=== PATIENT | male | born 1965 | race Caucasian/White ===

== ENCOUNTER 2024-10-25 23:24 | Inpatient (IN) | payer MEDICARE, MEDICAID, SELFPAY ==
--- NOTE | ~2024-10-25 | CT_ITS ---
CLINICAL HISTORY: Epigastric Pain; Hx Pancreatitis CT abdomen and pelvis with contrast Comparison: None Findings: No consolidation or effusion. The gallbladder and solid organs are within normal limits. No hydronephrosis or hydroureter. No bowel obstruction, pneumoperitoneum, or pneumatosis. A right hip prosthesis is in place, producing artifact which mildly limits evaluation of the pelvic structures. No focal bladder wall thickening identified. Unremarkable prostate gland. Normal appendix. No acute fracture visualized. IMPRESSION: 1. No acute inflammatory process identified within the abdomen or pelvis. No CT evidence for acute pancreatitis. This document has been electronically signed by: Manuel Morejon MD on 10/26/2024 02:51:55
--- NOTE | 2024-10-25 23:31 | ECG_ITS ---
Test Reason : TACHY Blood Pressure : */* mmHG Vent. Rate : 84 BPM Atrial Rate : 84 BPM P-R Int : 144 ms QRS Dur : 86 ms QT Int : 360 ms P-R-T Axes : 23 3 29 degrees QTcB Int : 425 ms Normal sinus rhythm Normal ECG When compared with ECG of 09-Oct-2016 10:11, No significant change was found Referred By: Generic ED Physician Electronically Signed By: EDDA NOWAK MD
[2024-10-25 23:32] VITALS: BP 156/81; PULSE 100; O2SAT 99; BMI 40.8
[2024-10-25 23:52] VITALS: BP 141/75; PULSE 103; RESP 92; O2SAT 96
--- NOTE | 2024-10-26 00:03 | ED.ALCOHOL ---
HPI - Alcohol General Chief Complaint: ETOH/Substance Use Stated Complaint: ALCOHOL WITHDRAWLS Time Seen by Provider: 10/26/24 00:02 Source: patient Mode of arrival: EMS Limitations: no limitations History of Present Illness ED Provider: Pranav PURDY HPI narrative: The patient is a 59-year-old male with history of alcohol dependency presenting to the ED reporting he was discharged from [facility] on 10/23 or he was seen for alcohol withdrawal and pancreatitis. The patient reports he was discharged on Ativan which was not sufficiently treating his withdrawal symptoms. 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 Patient denies other drinking since discharge. The patient reports he took the Librium at approximately 15:00 with no improvement in symptoms. Patient reports persistent epigastric abdominal discomfort consistent with his pancreatitis. Patient also reports persistent tremor and nausea with dry heaving. Patient arrived to the ED with a CIWA of 15. Related Data Allergies Allergy/AdvReac Type Severity Reaction Status Date / Time No Known Allergies Allergy Verified 10/25/24 23:37 Review of Systems Review of Systems: Yes all other systems are reviewed and are negative PMFSH Social History Social History Alcohol intake: current Alcohol intake frequency: 3 or more drinks per day Smoked in Last 30 Days: No Use of substances other than those prescribed or required for medical reasons: No Advance Directives: No Do you have a plan to hurt others: No Plan Physical Exam ED Vital Signs: Vital Signs - 24 hr 10/25/24 23:52 10/26/24 02:03 10/26/24 02:56 Pulse Rate 103 H 78 66 Respiratory Rate 92 H 20 16 Blood Pressure 141/75 H 142/109 H 142/78 H Pulse Oximetry 96 97 97 Oxygen Delivery Method Room Air Room Air Room Air 10/26/24 03:35 Pulse Rate Respiratory Rate 18 Blood Pressure Pulse Oximetry Oxygen Delivery Method BMI result Body Mass Index 40.8 CONSTITUTIONAL: The patient appears tremulous, anxious, otherwise non-toxic, well nourished and in no acute distress. Vital signs as documented. HEAD: Atraumatic, normocephalic. EYES: EOMs grossly intact, pupils equal, conjunctiva clear, no exudate. ENT: Nares patent, no discharge. Airway patent, no audible stridor, visible mucosa is pink and moist without noted lesions. NECK: Trachea is midline, no obvious masses or gross abnormalities. CHEST: Symmetric movement, normal appearance. LUNGS: LS present and CTAB, no w/r/r. Non-labored work of breathing. CARDIAC: Regular Rhythm, S1/S2 appreciated, no murmurs, rubs or gallops. ABDOMEN: Abdomen soft x4 quadrants, positive tenderness to palpation of the epigastrium, negative rebound, no palpable masses or organomegaly. : Deferred. EXTREMITIES: Normal tone, moves all extremities spontaneously without reported pain. No obvious acute injury or deformity noted. NEURO: Alert and oriented x3, CN II-XII appear grossly intact. Tremulous, but Cerebellar Functioning otherwise grossly intact. No obvious sensory or motor deficits. Speech clear and appropriate. PSYCH: Anxious, borderline agitated affect, however with appropriate eye contact, fluid speech, with appropriate response to questioning. No reported suicidality or homicidality. SKIN: Warm, dry, color appropriate, normal turgor. No rashes noted. Medical Decision Making Medical Decision Making MDM Narrative: 1:27 AM 10/26/2024 (Zahida PURDY): The patient is a 59-year-old male with history of chronic alcoholism and pancreatitis presenting to the ED for evaluation of worsening tremor with nausea and dry heaving consistent with alcohol withdrawal symptoms as well as epigastric abdominal pain. Patient was recently discharged from clinic and saw hospital on 10/23/2024, was discharged with Ativan however reports this was insufficient, size PCP today and was prescribed Librium however while waiting for Librium drank 3 nips of vodka at approximately noon. The patient then took Librium but felt no improvement in symptoms and presents to the ED for evaluation. Patient presents to the ED tremulous, scoring CIWA of 15 upon arrival. The patient was ordered for phenobarbital however patient declined this stating phenobarbital causes him severe diarrhea and abdominal pain. Orders changed to Valium. The patient will also be treated with magnesium sulfate, thiamine, IV fluid hydration, Toradol for epigastric pain, and we will obtain a CT of the abdomen to rule out peripancreatic cyst. Patient's laboratory evaluation shows lipase of 114, no leukocytosis, ESTHER, or significant electrolyte abnormality, initial troponin is negative.. We will add on ethanol and magnesium. 3:13 AM 10/26/2024 (Zahida PURDY): Patient's magnesium is normal, ethanol level of 40. The patient's CT shows no CT evidence of acute pancreatitis, no evidence of inflammation. The patient's discharge summary from included [facility] was obtained with the patient's permission and shows patient was initially treated with phenobarbital but declined additional administration due to abdominal discomfort. The patient was switched to Librium which he tolerated well however his insurance does not cover Librium without a prior authorization and he was discharged with a Valium taper. Discharge summary additionally notes CT was negative for evidence of acute pancreatitis, patient was treated with Dilaudid which was eventually weaned and patient was placed back on his regular methadone dose. Patient was offered clonidine but declined. Patient was also treated for gout of the left hand with steroids, was also prescribed cephalexin for question of superimposed infection. At this time the patient's CIWA has improved to 13, patient has received an additional 10 mg of Valium. Patient's heart rate has improved to 66, patient appears in no acute distress. The patient reports he has Librium at home, prescribed by his PCP. We will continue to monitor for improvement, and reassess. Pending improvement in symptoms patient will be assess for appropriateness for discharge. 3:34 AM 10/26/2024 (Zahida PURDY): Upon reassessment patient states he does not feel comfortable going home with current symptoms. Patient requesting additional pain management, patient will receive IV morphine and we will admit for alcohol withdrawal with chronic pancreatitis. Differential Diagnosis Differential Diagnoses: The differential diagnosis associated with the presentation includes Alcohol withdrawal, acute pancreatitis, chronic pancreatitis, peripancreatic cyst, malingering Admission/Observation Consideration of admission/observation: Escalation of care including admission/observation considered Lab Data MDM Lab Attestation statement: I reviewed the patient's lab results. 10/26/24 00:01 10/26/24 00:01 Labs: Lab Results 10/26/24 10/26/24 Range/Units 00:01 00:58 WBC 10.7 (4.8-10.8) X10*3/uL RBC 3.98 L (4.60-5.80) X10*6/uL Hgb 12.9 L (14.0-18.0) g/dl Hct 36.1 L (42.0-52.0) % MCV 90.7 (80.0-98.0) fL MCH 32.4 (27.0-33.0) pg MCHC 35.7 (31.0-36.0) g/dl RDW 14.1 (11.0-16.0) % Plt Count 151 L (160-400) X10*3/uL MPV 10.3 (9.4-12.4) fL Immature Gran % (Auto) 0.8 H (0.0-0.4) % Neut % (Auto) 75.5 H (45-73) % Lymph % (Auto) 15.4 L (20-40) % [place] % (Auto) 7.3 (2-11) % Eos % (Auto) 0.6 (0-4) % Baso % (Auto) 0.4 (0-2) % Lymph # (Auto) 1.7 (1.2-4.9) X10*3/uL [place] # (Auto) 0.8 (0.1-1.2) X10*3/uL Eos # (Auto) 0.1 (0.0-0.4) X10*3/uL Baso # (Auto) 0.0 (0.0-0.2) X10*3/uL Abs Immat Gran (auto) 0.09 H (0.00-0.03) X10*3/uL Absolute Neuts (auto) 8.1 (2.0-8.3) x10*3/uL Absolute Nucleated RBC 0.000 (0.0-0.012) X10*3/uL Nucleated RBC % (auto) 0.0 (0.0-0.2) /100WBC Sodium 140 (135-145) mmol/L Potassium 4.6 (3.3-5.1) mmol/L Chloride 105 (96-108) mmol/L Carbon Dioxide 18 L (22-29) mmol/L Anion Gap 22 H (12-20) BUN 12 (9-16) mg/dL Creatinine 1.03 (0.5-1.4) mg/dL Estim Creat Clear Calc 101.5 Estimated GFR > 60 Random Glucose 169 H (60-115) mg/dL Calcium 8.5 (8.4-10.2) mg/dL Magnesium 2.0 (1.6-2.6) mg/dL Total Bilirubin 0.2 (0.0-1.0) mg/dL AST 69 H (5-37) U/L ALT 51 H (0-40) U/L Alkaline Phosphatase 125 H (39-117) U/L Troponin I High Sens 10.0 (<3.5-35.0) ng/L Total Protein 7.7 (6.5-8.0) g/dL Albumin 4.0 (3.5-5.0) g/dL Lipase 114 H (8-78) U/L Urine Color Yellow Urine Appearance Clear Urine pH 6.0 (5.0-9.0) Ur Specific [place] 1.020 (1.005-1.025) Urine Protein Negative (Neg-Trace) mg/dL Urine Glucose (UA) Negative (Negative) mg/dL Urine Ketones Trace (Negative) mg/dL Urine Blood Negative (Negative) Urine Nitrite Negative (Negative) Ur Leukocyte Esterase Negative (Negative) Urine RBC 0-2 (0-2) /HPF Urine WBC 0-5 (0-5) /HPF Ur Squamous Epith Cells 0-2 (0-2) /HPF Urine Bacteria None Seen (None Seen) Hyaline Casts 0-2 (0-2) /LPF Ethyl Alcohol 40 mg/dL Radiology Impression Discussion of test interpretation with radiology: I have reviewed the radiologist's reading. Radiologist Impression: CLINICAL HISTORY: Epigastric Pain; Hx Pancreatitis CT abdomen and pelvis with contrast Comparison: None Findings: No consolidation or effusion. The gallbladder and solid organs are within normal limits. No hydronephrosis or hydroureter. No bowel obstruction, pneumoperitoneum, or pneumatosis. A right hip prosthesis is in place, producing artifact which mildly limits evaluation of the pelvic structures. No focal bladder wall thickening identified. Unremarkable prostate gland. Normal appendix. No acute fracture visualized. IMPRESSION: 1. No acute inflammatory process identified within the abdomen or pelvis. No CT evidence for acute pancreatitis. This document has been electronically signed by: Manuel Morejon MD on 10/26/2024 02:51:55 External Record Review External record reviewed: Outpatient record and Outside ED record Prescription Management I considered prescription management with: Pain Medication Medications Administered Discontinued Medications Generic Name Dose Route Start Last Admin Trade Name Freq PRN Reason Stop Dose Admin Diazepam 5 mg 10/26/24 01:19 10/26/24 01:32 Diazepam 10 Mg/2 Ml Cartridge IVPUSH 10/26/24 01:20 5 mg STAT STA Administration Diazepam 10 mg 10/26/24 02:52 10/26/24 02:59 Diazepam 10 Mg/2 Ml Cartridge IVPUSH 10/26/24 02:53 10 mg STAT STA Administration Thiamine HCl 200 mg/ Sodium 102 mls @ 204 mls/hr 10/26/24 00:04 10/26/24 01:44 Chloride IV 10/26/24 00:33 Infused ONCE ONE Infusion Magnesium Sulfate 2 gm in 50 mls @ 25 mls/hr 10/26/24 00:04 10/26/24 02:55 Magnesium Sulfate/H2o IV 10/26/24 02:03 Infused ONCE ONE Infusion Sodium Chloride 1,000 mls @ 999 mls/hr 10/26/24 01:30 10/26/24 03:11 Ns IV 10/26/24 02:30 Infused .Q1H1M JORDON Infusion Iohexol 100 ml 10/26/24 01:59 10/26/24 01:59 Iohexol 350 Mg/Ml 100 Ml Infus..Btl IV 10/26/24 02:00 100 ml ONCE ONE Administration Iohexol 100 ml 10/26/24 02:00 10/26/24 02:01 Iohexol 350 Mg/Ml 100 Ml Infus..Btl IV 10/26/24 02:01 100 ml ONCE ONE Administration Ketorolac Tromethamine 15 mg 10/26/24 01:21 10/26/24 01:32 Ketorolac Tromethamine 15 Mg/Ml Vial IVPUSH 10/26/24 01:22 15 mg ONCE ONE Administration Ketorolac Tromethamine 15 mg 10/26/24 02:02 10/26/24 02:22 Ketorolac Tromethamine 15 Mg/Ml Vial IVPUSH 10/26/24 02:03 15 mg ONCE ONE Administration Morphine Sulfate 4 mg 10/26/24 03:30 10/26/24 03:35 Morphine Sulfate 4 Mg/Ml Cartridge IVPUSH 10/26/24 03:31 4 mg ONCE ONE Administration Protocol Discharge Plan Discharge Clinical Impression: Alcohol withdrawal syndrome, Chronic alcoholic pancreatitis Patient Disposition: Admitted As Inpatient Print Language: Tajik
[2024-10-26 00:05] LABS: MANUAL DIFF FLAG NO
[2024-10-26 00:07] LABS: Hematocrit 36.1 % (42.0-52.0); Hemoglobin 12.9 g/dl (14.0-18.0); Imm Gran Abs Auto 0.09 X10*3/uL (0.00-0.03); Imm Gran Pct Auto 0.8 % (0.0-0.4); Lymphocytes Absolute Auto 1.7 X10*3/uL (1.2-4.9); Mean Corpuscular HGB Conc 35.7 g/dl (31.0-36.0); Mean Corpuscular Hemoglobin 32.4 pg (27.0-33.0); Mean Corpuscular Volume 90.7 fL (80.0-98.0); NRBC Abs Auto 0.000 X10*3/uL (0.0-0.012); NRBC Pct Auto 0.0 /100WBC (0.0-0.2); Platelet Count 151 X10*3/uL (160-400); Red Blood Count 3.98 X10*6/uL (4.60-5.80); White Blood Count 10.7 X10*3/uL (4.8-10.8)
[2024-10-26] MEDS: Thiamine HCL 200 MG in 0.9 % Sodium Chloride 100 ML 204 MG IV (00:25)
[2024-10-26] MEDS: Magnesium Sulfate/H2O 2 GM/50 ML PIGGYBACK IV (00:26)
[2024-10-26 00:30] LABS: Alanine Aminotransferase 51 U/L (0-40); Albumin Level 4.0 g/dL (3.5-5.0); Alkaline Phosphatase 125 U/L (39-117); Anion Gap 22 (12-20); Aspartate Amino Transferase 69 U/L (5-37); Blood Urea Nitrogen 12 mg/dL (9-16); Calcium 8.5 mg/dL (8.4-10.2); Carbon Dioxide 18 mmol/L (22-29); Chloride 105 mmol/L (96-108); Creatinine Clr Calc Pharmacy 101.5; Estimated Glomerular Filt Rate > 60; Lipase 114 U/L (8-78); Potassium 4.6 mmol/L (3.3-5.1); Sodium 140 mmol/L (135-145); Total Protein 7.7 g/dL (6.5-8.0)
--- NOTE | 2024-10-26 00:30 | PC.NURSE ---
Failed attempt at obtaining an IV line on the L AC. 22G IV line placed on the right hand with difficulty. Flushing with some resistance. MDL made aware. 20G U/S IV placed by MDL on L medial bicep area. Pt tolerated well.
--- NOTE | 2024-10-26 00:31 | PC.NURSE ---
spoke to provider Pranav in regards to phenobarb rx- pt stated to RN he gets severe diarrhea and abdominal pain and prefers versed. Provider stated he will see patient.
[2024-10-26 00:36] LABS: Troponin-I High Sensitivity 10.0 ng/L (<3.5-35.0)
--- NOTE | 2024-10-26 01:00 | PC.NURSE ---
Jae brought to this writers attention that pt took off cafeteria monitor and is requesting to leave. Pt states not feeling well and is wanting to leave. Pt redirected to the bedside and he then agreed to continue receiving medical care.
[2024-10-26 01:05] LABS: Appearance Urine Clear; Glucose Urine UA Negative (Negative); PH 6.0 (5.0-9.0); Specific Gravity - Urine 1.020 (1.005-1.025)
[2024-10-26] MEDS: diazePAM 10 MG/2 ML CARTRIDGE 5 MG IVPUSH ×2 (01:32→05:53)
--- NOTE | 2024-10-26 01:41 | PC.NURSE ---
RN went to administer pts toradol and valium. Pt refused the toradol stating he did not want to take something that wasn't going to help with pain- he stated he wanted morphine. RN advised him that he should still try it out to help the pain and he refused. Toradol returned back to med room. Pt was also upset he got 5mg of valium vs 10mg.
--- NOTE | 2024-10-26 01:43 | MHC.EDTECH ---
This animal shelter manager brought to the attention of CHRISS Freeman of the crisis exchange underwriting consultant order, she stated to disregard.
[2024-10-26 01:52] LABS: Magnesium 2.0 mg/dL (1.6-2.6)
[2024-10-26] MEDS: iohexoL 350 MG/ML 100 ML INFUS..BTL IV ×2 (01:59→02:01)
[2024-10-26 02:03] VITALS: BP 142/109; PULSE 78; RESP 20; O2SAT 97
--- NOTE | 2024-10-26 02:25 | PC.NURSE ---
20G IV line on the bicep infiltrated. Zero amount of fluid infused. Fluids currently paused. MDL made aware.
--- NOTE | 2024-10-26 02:53 | PC.NURSE ---
20G U/S guided IV placed by MLP on the right bicep. Pt tolerated well. Fluids restarted.
[2024-10-26 02:56] VITALS: BP 142/78; PULSE 66; RESP 16; O2SAT 97
[2024-10-26] MEDS: diazePAM 10 MG/2 ML CARTRIDGE IVPUSH (02:59)
[2024-10-26 03:35] VITALS: RESP 18
[2024-10-26 04:31] VITALS: BP 127/57; PULSE 57; RESP 16; TEMP 36.6; O2SAT 95
--- NOTE | 2024-10-26 05:07 | PC.NURSE ---
Pt vomited right after being given Ativan 2mg PO and is reporting increased LUQ pain. [place] text sent to Deepa Arcos PA-C. No new orders at this time.
--- NOTE | 2024-10-26 05:45 | P.HPHOSP_ITS ---
History of Present Illness Date of Service: 10/26/24 Attending physician on admission: Eagle Rick Chief Complaint: pancreatitis/etoh withdrawal Patient is a 59-year-old male with a past medical history significant for alcohol use disorder, alcohol withdrawal and recent admission at [facility] for hematemesis, alcohol withdrawal and alcoholic pancreatitis, who presented to the ED after discharge from [facility] on 10/23/2024 as he was unable to receive the Librium due to insurance issues that they prescribed on discharge, and he ended up consuming alcohol again. The patient reports he had 3 nips 12 hours prior to arrival. He is tremulous with nausea, vomiting and epigastric pain. He was unable to tolerate phenobarbital at [facility] due to worsening abdominal pain and nausea. He has been unable to tolerate anything p.o. here. The patient was also treated at [facility] for gout with a possible superimposed cellulitis L hand, discharged home with cephalexin with great improvement per pt. no longer having pain in the hand and no fevers. He was finally able to get the librium earlier today but did not get any releif. CIWA upon arrival was 15 and he reports no improvement with IV valium, could not tolerate PO ativan and cannot tolerate phenobard due to abd pain and diarrhea. Review of Systems 2 Constitutional: Constitutional: Denies chills, Denies fatigue, Denies fever(s) and Reports headache(s) Eyes: Eyes: Denies change in vision and Denies loss of vision ENT: Reports headache(s), Denies nasal discharge and Denies sore throat Cardiovascular: Cardiovascular: Denies chest pain, Denies syncope, Reports rapid heart rate, Denies leg edema and Denies dyspnea Respiratory: Respiratory: Denies chest congestion, Denies cough, Denies dyspnea and Denies wheezing Gastrointestinal: Gastrointestinal: Reports abdominal pain, Reports nausea, Reports vomiting and Reports hematemesis Genitourinary: Genitourinary: Denies dysuria and Denies urinary frequency Musculoskeletal: Musculoskeletal: Denies myalgias Integumentary/Breasts: Skin/Breast: Denies rash Neurologic: Denies confusion, Denies syncope, Reports headache(s) and Denies loss of vision Psychiatric: Psychiatric: Denies confusion Endocrine: Endocrine: Denies fatigue Hematologic/Lymphatic: Hematologic/Lymphatic: Denies easy bleeding and Denies easy bruising Allergic/Immunologic: Allergic/Immunologic: Denies wheezing [facility] Medical History (Updated 10/26/24 @ 05:59 by Deepa Arcos PA-C) Morbid obesity Class 1 obesity Gout Alcohol use disorder Alcohol withdrawal syndrome Chronic alcoholic pancreatitis Functional capacity: independent ambulation Social History Alcohol intake: current Alcohol intake frequency: 3 or more drinks per day Patient Tobacco Use Status: Tobacco use Unknown Smoked in Last 30 Days: No Use of substances other than those prescribed or required for medical reasons: No Advance Directives: No Do you have a plan to hurt others: No Plan Nutrition Risks: No Nutritional Risk Narrative: reports drinking up to a gallon of hard liqour when consuming. no smoking or drug use. Meds Allergies Allergy/AdvReac Type Severity Reaction Status Date / Time No Known Allergies Allergy Verified 10/25/24 23:37 Active Medications: Current Medications Acetaminophen (Acetaminophen 325 Mg Tablet) 650 mg PO Q6H PRN PRN Reason: Pain, Mild 1-3,fever,headache Calcium Carbonate (Calcium Carbonate 750 Mg Tab.Chew) 750 mg PO Q4H PRN PRN Reason: Heartburn Enoxaparin Sodium (Enoxaparin Sodium 40 Mg/0.4 Ml Syringe) 40 mg SUBCUT Q24H JORDON Hydromorphone HCl (Hydromorphone Hcl 0.5 Mg/0.5 Ml Syringe) 0.5 mg IVPUSH Q4H PRN; Protocol PRN Reason: Pain, Severe (Pain Scale 7-10) Lactated Ringer's (Lr) 1,000 mls @ 100 mls/hr IVCONT .Q10H JORDON Lorazepam (Lorazepam 1 Mg Tablet) 1 mg PO Q4H PRN On Hold: 10/26/24 05:34 PRN Reason: Breakthrough alcohol withdrawa Stop: 10/30/24 04:27 Lorazepam (Lorazepam 1 Mg Tablet) 1 mg PO Q4H JORDON; Taper Stop: 10/30/24 06:29 Magnesium Hydroxide (Milk Of Magnesia 30 Ml Oral.Susp) 30 ml PO DAILY PRN PRN Reason: Constipation Melatonin (Melatonin 3 Mg Tablet) 6 mg PO BEDTIME PRN PRN Reason: Insomnia Ondansetron HCl (Ondansetron Hcl 4 Mg/2 Ml Vial) 4 mg IVPUSH Q8H PRN PRN Reason: Nausea and Vomiting Oxycodone HCl (Oxycodone Hcl Immed Release 5 Mg Tablet) 5 mg PO Q6H PRN PRN Reason: Pain, Moderate(Pain Scale 4-6) Sodium Chloride (0.9 % Sodium Chloride Flush 3 Ml Syringe) 3 ml IVFLUSH QSHIFT JORDON Physical Exam 2 Vital Signs and Narrative: Vital Signs: Last Vital Signs Temp 97.9 F 10/26/24 04:31 Pulse 57 10/26/24 04:31 Resp 16 10/26/24 04:31 BP 127/57 L 10/26/24 04:31 Pulse Ox 95 10/26/24 04:31 O2 Del Method Room Air 10/26/24 04:31 BMI result Body Mass Index 40.8 General: AOx3, pacing room, anxious Resp: CTA bilaterally, no wheezing or crackles CVS: tachy, regular rhythm GI: quiet BS , tender upper abd, no distention Skin: Warm, dry. mild erythema L hand, no increased warmth or pain. Neuro: Cranial nerves II-XII grossly intact bilaterally. Motor grossly intact bilaterally Extremities: No LE edema Psych: Appropriate affect Const: General: No confusion Orientation/consciousness: No confusion Neuro: General: No confusion Results Labs 10/26/24 05:44 10/26/24 05:44 Labs: Laboratory Results - last 24 hr 10/26/24 10/26/24 00:01 00:58 MCV 90.7 MCH 32.4 MCHC 35.7 RDW 14.1 Plt Count 151 L MPV 10.3 Immature Gran % (Auto) 0.8 H Neut % (Auto) 75.5 H Lymph % (Auto) 15.4 L [place] % (Auto) 7.3 Eos % (Auto) 0.6 Baso % (Auto) 0.4 Lymph # (Auto) 1.7 [place] # (Auto) 0.8 Eos # (Auto) 0.1 Baso # (Auto) 0.0 Abs Immat Gran (auto) 0.09 H Absolute Neuts (auto) 8.1 Absolute Nucleated RBC 0.000 Nucleated RBC % (auto) 0.0 Anion Gap 22 H Estim Creat Clear Calc 101.5 Estimated GFR > 60 Random Glucose 169 H Calcium 8.5 Magnesium 2.0 Total Bilirubin 0.2 AST 69 H ALT 51 H Alkaline Phosphatase 125 H Troponin I High Sens 10.0 Total Protein 7.7 Albumin 4.0 Lipase 114 H Urine Color Yellow Urine Appearance Clear Urine pH 6.0 Ur Specific [place] 1.020 Urine Protein Negative Urine Glucose (UA) Negative Urine Ketones Trace Urine Blood Negative Urine Nitrite Negative Ur Leukocyte Esterase Negative Urine RBC 0-2 Urine WBC 0-5 Ur Squamous Epith Cells 0-2 Urine Bacteria None Seen Hyaline Casts 0-2 Ethyl Alcohol 40 Assessment and Plan (1) Acute on chronic pancreatitis: Status: Acute (2) Alcohol withdrawal syndrome: Status: Acute (3) Alcoholic gastritis: Status: Acute (4) Morbid obesity: Status: Acute Plan Patient is a 59-year-old male with a past medical history significant for alcohol use disorder, alcohol withdrawal and recent admission at [facility] for hematemesis, alcohol withdrawal and alcoholic pancreatitis, who presented to the ED after discharge from [facility] on 10/23/2024 as he was unable to receive the Librium due to insurance issues that they prescribed on discharge, and he ended up consuming alcohol again. acute on chronic alcoholic pancreatitis with gastritis - lipase 114 - A/P CT without acute findings - recent admission at [facility] for pancreatitis d/c'd 10/23 with librium - famotidine 20mg IV BID for associated gastritis - clear liquid diet - pain management with oxycodone and dialudid - monitor CBC, CMP and CRP alcohol withdrawal - CIWA currently 14, increasing, no improvement with IV valium - eoth level 40 on arrival. 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 or give phenobarb regardless of diarrhea - folic acid, thiamine and multivitamin - monitor on tele - bicarb 18, anion gap 22, repeat labs improved L hand gout vs cellulitis - improved - med rec pending - pt requesting no futher abx morbid obesity - BMI 40.8 - weight loss encouraged med rec pending full code VTE prophy: lovenox Pt with acute pancreatitis with etoh withdrawal requiring admission for at least 2 midnights stay for pain management and safe withdrawal. Quality Stroke Does the patient have a stroke diagnosis?: No VTE Prior VTE?: No VTE Risk Level:: Medical - moderate - high VTE Device Contraindication: Treatment Not Indicated VTE Drug Contraindication: N/A - Med Ordered
[2024-10-26] MEDS: Lactated Ringers 1,000 ML 100 ML IVCONT (05:54)
[2024-10-26 05:58] VITALS: BP 140/67; PULSE 59; RESP 18; O2SAT 96
[2024-10-26 06:05] LABS: Hematocrit 37.6 % (42.0-52.0); Hemoglobin 13.3 g/dl (14.0-18.0); Mean Corpuscular HGB Conc 35.4 g/dl (31.0-36.0); Mean Corpuscular Hemoglobin 32.0 pg (27.0-33.0); Mean Corpuscular Volume 90.6 fL (80.0-98.0); NRBC Abs Auto 0.000 X10*3/uL (0.0-0.012); NRBC Pct Auto 0.0 /100WBC (0.0-0.2); Platelet Count 146 X10*3/uL (160-400); Red Blood Count 4.15 X10*6/uL (4.60-5.80); White Blood Count 9.0 X10*3/uL (4.8-10.8)
--- NOTE | 2024-10-26 06:10 | MHC.EDTECH ---
Patient has been put on seizure precautions, one side railing has been padded. Patient is refusing to have the other railing padded because he says it makes the stretcher feel uncomfortable and he wont be able to get off when he needs to. I attempted to advise patient of the safety and reason behind the padding. Patient believes he is not in risk of seizures. RN aware
[2024-10-26 06:25] LABS: Alanine Aminotransferase 52 U/L (0-40); Albumin Level 4.2 g/dL (3.5-5.0); Alkaline Phosphatase 135 U/L (39-117); Anion Gap 16 (12-20); Aspartate Amino Transferase 45 U/L (5-37); Blood Urea Nitrogen 13 mg/dL (9-16); Calcium 8.5 mg/dL (8.4-10.2); Carbon Dioxide 22 mmol/L (22-29); Chloride 107 mmol/L (96-108); Creatinine Clr Calc Pharmacy 108.9; Estimated Glomerular Filt Rate > 60; Potassium 4.8 mmol/L (3.3-5.1); Sodium 140 mmol/L (135-145); Total Protein 7.4 g/dL (6.5-8.0)
--- NOTE | 2024-10-26 07:27 | PC.NURSE ---
Pt up to nursing station multiple times since RN assuming care with unrealistic requests ( I was told I would get medications within minutes. ) Pt alert and oriented x3, ambulatory with a steady gait but becoming more agitated with staff and requesting to leave. MD Reynolds made aware at 0705am, reported that he was no longer the provider. MD Chery made aware at 0706am that pt wanted to leave AMA. Pt ripped out his IV's, unwilling to wait to speak to a provider. Bandages applied to IV sites, pt escorted to exit per his request. MD Chery made aware pt left AMA at 0712am.
--- NOTE | 2024-10-26 07:28 | PM.DS ---
DS: Providers Provider Date of Service: 10/26/24 Date of admission: 10/26/24 04:24 Date of discharge: 10/26/24 Primary care physician: JOHN Hilliard- Consults: 10/26/24 06:31 Consult to Critical Care Routine Consulting Provider: Tarah Gandara Reason for consultation: etoh withdrawal, no improvement valium, cannot take pheno Has provider been notified: No 10/26/24 06:51 Addiction Medicine Provider Routine Consulting Provider: Addiction Covering Reason for consultation: etoh withdrawal Has provider been notified: No DS: Diagnosis Discharge Diagnosis (1) Acute on chronic pancreatitis: Status: Acute (2) Alcohol withdrawal syndrome: Status: Acute (3) Alcoholic gastritis: Status: Acute (4) Morbid obesity: Status: Acute DS: Summary Hospital Course Hospital Course: admission hpi Chief Complaint: pancreatitis/etoh withdrawal Patient is a 59-year-old male with a past medical history significant for alcohol use disorder, alcohol withdrawal and recent admission at [facility] for hematemesis, alcohol withdrawal and alcoholic pancreatitis, who presented to the ED after discharge from [facility] on 10/23/2024 as he was unable to receive the Librium due to insurance issues that they prescribed on discharge, and he ended up consuming alcohol again. The patient reports he had 3 nips 12 hours prior to arrival. He is tremulous with nausea, vomiting and epigastric pain. He was unable to tolerate phenobarbital at [facility] due to worsening abdominal pain and nausea. He has been unable to tolerate anything p.o. here. The patient was also treated at [facility] for gout with a possible superimposed cellulitis L hand, discharged home with cephalexin with great improvement per pt. no longer having pain in the hand and no fevers. He was finally able to get the librium earlier today but did not get any releif. CIWA upon arrival was 15 and he reports no improvement with IV valium, could not tolerate PO ativan and cannot tolerate phenobard due to abd pain and diarrhea. hospital course: While setting in for the begining of the day, I was informed that this patient was just admitted wanted to leave as stated by CHRISS Hopson good morning! the sherry in ED 3 Abel Wilson would like to leave AMA. He is creating quite a scene, wondering if he is good to go or if you can come assist dealing with him 7:06 patient wants to go home, is alert and oriented and is getting aggressive with staff. is not suicidal. i am not going to get in the way if he wants to leave. 7:09 AM pt ripped out his IV's, was bleeding everywhere. was not happy with his service here, was told my andrew that he would receive medications in minutes and wanted to leave. pt A&ox4, ambulatory with a steady gait. pt did not want to wait to speak to a provider. pt left department at 0712 Patient left by the time I goet to the ED. His planned management is as below Patient is a 59-year-old male with a past medical history significant for alcohol use disorder, alcohol withdrawal and recent admission at [facility] for hematemesis, alcohol withdrawal and alcoholic pancreatitis, who presented to the ED after discharge from [facility] on 10/23/2024 as he was unable to receive the Librium due to insurance issues that they prescribed on discharge, and he ended up consuming alcohol again. acute on chronic alcoholic pancreatitis with gastritis - lipase 114 - A/P CT without acute findings - recent admission at [facility] for pancreatitis d/c'd 10/23 with librium - famotidine 20mg IV BID for associated gastritis - clear liquid diet - pain management with oxycodone and dialudid - monitor CBC, CMP and CRP alcohol withdrawal - CIWA currently 14, increasing, no improvement with IV valium - eoth level 40 on arrival. last had 3 nips 12hrs ENDOSCOPY TECH - monitor CIWA - cannot tolerate phenobarb or PO ativan - continue 5mg IV diazepam Q4H PRN for withdrawal CIWA >10 x24 hours, then 5mg Q6H x24 hours, then 2,5mg Q6H x48 hours (preferrably transition to PO when tolerated) - seizure precautions - addiction med consult - ICU consult recommendations: give PO ativan with zofran. or give phenobarb regardless of diarrhea - folic acid, thiamine and multivitamin - monitor on tele - bicarb 18, anion gap 22, repeat labs improved L hand gout vs cellulitis - improved - med rec pending - pt requesting no futher abx morbid obesity - BMI 40.8 - weight loss encouraged med rec pending full code VTE prophy: lovenox Pt with acute pancreatitis with etoh withdrawal requiring admission for at least 2 midnights stay for pain management and safe withdrawa Time Attestation Discharge Coordination Time (in mins): 45 Quality: Safe Use of Opioids Does Pt have an Active Cancer Diagnosis on the Problem List?: No Quality: Stroke Does the patient have a stroke diagnosis?: No Physical Exam Vital Signs: Vital Signs: Last Vital Signs Temp 97.9 F 10/26/24 04:31 Pulse 59 10/26/24 05:58 Resp 18 10/26/24 05:58 BP 140/67 H 10/26/24 05:58 Pulse Ox 96 10/26/24 05:58 O2 Del Method Room Air 10/26/24 05:58 BMI result Body Mass Index 40.8 DS: Data Data Completed and Pending Labs on day of discharge: Laboratory Results - last 24 hr 10/26/24 10/26/24 10/26/24 00:01 00:58 05:44 WBC 10.7 9.0 RBC 3.98 L 4.15 L Hgb 12.9 L 13.3 L Hct 36.1 L 37.6 L MCV 90.7 90.6 MCH 32.4 32.0 MCHC 35.7 35.4 RDW 14.1 14.3 Plt Count 151 L 146 L MPV 10.3 10.8 Immature Gran % (Auto) 0.8 H Neut % (Auto) 75.5 H Lymph % (Auto) 15.4 L [place] % (Auto) 7.3 Eos % (Auto) 0.6 Baso % (Auto) 0.4 Lymph # (Auto) 1.7 [place] # (Auto) 0.8 Eos # (Auto) 0.1 Baso # (Auto) 0.0 Abs Immat Gran (auto) 0.09 H Absolute Neuts (auto) 8.1 Absolute Nucleated RBC 0.000 0.000 Nucleated RBC % (auto) 0.0 0.0 Sodium 140 140 Potassium 4.6 4.8 Chloride 105 107 Carbon Dioxide 18 L 22 Anion Gap 22 H 16 BUN 12 13 Creatinine 1.03 0.96 Estim Creat Clear Calc 101.5 108.9 Estimated GFR > 60 > 60 Random Glucose 169 H 108 Calcium 8.5 8.5 Magnesium 2.0 Total Bilirubin 0.2 0.3 AST 69 H 45 H ALT 51 H 52 H Alkaline Phosphatase 125 H 135 H Troponin I High Sens 10.0 C-Reactive Protein 2.97 H Total Protein 7.7 7.4 Albumin 4.0 4.2 Lipase 114 H Urine Color Yellow Urine Appearance Clear Urine pH 6.0 Ur Specific [place] 1.020 Urine Protein Negative Urine Glucose (UA) Negative Urine Ketones Trace Urine Blood Negative Urine Nitrite Negative Ur Leukocyte Esterase Negative Urine RBC 0-2 Urine WBC 0-5 Ur Squamous Epith Cells 0-2 Urine Bacteria None Seen Hyaline Casts 0-2 Ethyl Alcohol 40 Discharge Plan Discharge Anticipated Discharge Date/Time: 10/26/24 07:26 Patient Disposition: Left Against Medical Advice Discharge Diagnosis: Acute pancreatitis, alcoholic pancreatitis, Referrals: Zackery Quintero, [facility] [Primary Care Provider, [facility]] - 1 Week Discharge Orders: Discharge Order (Routine); Ordered 10/26/24 Ordered By: Anshul Rodriguez Diet: Advance to usual diet Activity on Discharge: As tolerated Print Language: Cameroonian Care Plan Goals: Left AMA Health Concerns: Left AMA Plan of Treatment: Left AMA Assessment: Left AMA
--- NOTE | 2024-10-26 12:58 | PM.EVENT ---
Event Note Date of Service: 10/26/24 Event Note: Addiction consult placed for patient with AUD Patient self directed discharge at 0712 this morning prior to being seen by [facility] No follow up indicated Time Spent With Patient Time: Total time managing care of this patient today ____ minutes.
== END 2024-10-26 15:54 | disposition left against medical advice (07) | DRG 439 ==
LOC: HO.ED 10-26 04:03 → HO.EDOVER 10-26 04:28
PROVIDERS: Physician Assistant; Admitting Provider Physician Assistant; Emergency Provider Emergency Medicine; PCP Registered Nurse; Visit Provider Internal Medicine
DX: K85.20 Alcohol induced acute pancreatitis without necrosis or infection (principal); F10.239 Alcohol dependence with withdrawal, unspecified; Z68.41 Body mass index [BMI] 40.0-44.9, adult; L03.114 Cellulitis of left upper limb; M10.9 Gout, unspecified; E66.01 Morbid (severe) obesity due to excess calories; Z71.3 Dietary counseling and surveillance; K86.0 Alcohol-induced chronic pancreatitis; Y90.2 Blood alcohol level of 40-59 mg/100 ml; K29.20 Alcoholic gastritis without bleeding; Z79.899 Other long term (current) drug therapy
CPT/HCPCS: 36415; 74177; 80053; 80307; 81001; 83690; 83735; 84484; 85025; 85027; 86140; 93005; 99285; J1885; J2270; J3360; J3411; J3475; J7120; Q9967

== ENCOUNTER → 2024-10-25 23:31 | Outpatient (BNV) | payer MEDICARE, MEDICAID, SELFPAY | PROVIDERS: Admitting Provider Physician Assistant; Emergency Provider Emergency Medicine; PCP Registered Nurse; Visit Provider Internal Medicine Cardiovascular Disease | DX: R00.0 Tachycardia, unspecified (principal) | CPT/HCPCS: 93010 ==

== ENCOUNTER → 2024-10-26 01:21 | Outpatient (BNV) | payer MEDICARE, MEDICAID, SELFPAY | PROVIDERS: Emergency Provider Emergency Medicine; PCP Registered Nurse; Visit Provider Radiology Diagnostic Radiology | DX: R10.13 Epigastric pain (principal) | CPT/HCPCS: 74177 ==

== ENCOUNTER → 2024-10-26 04:24 | Outpatient (BNV) | payer MEDICARE, MEDICAID, SELFPAY | PROVIDERS: Admitting Provider Physician Assistant; Emergency Provider Emergency Medicine; PCP Registered Nurse; Visit Provider Internal Medicine | DX: K85.90 Acute pancreatitis without necrosis or infection, unspecified (principal); K86.1 Other chronic pancreatitis; F10.939 Alcohol use, unspecified with withdrawal, unspecified; K29.20 Alcoholic gastritis without bleeding; E66.01 Morbid (severe) obesity due to excess calories | CPT/HCPCS: 99223; 99499 ==

== ENCOUNTER 2025-04-14 10:41 | Emergency (ER) | payer MEDICARE, MEDICAID, SELFPAY ==
[2025-04-14] VITALS (15 sets, daily range): BP systolic 90–166; BP diastolic 38–93; PULSE 59–79; RESP 16–20; TEMP 36.6–37.1; O2SAT 94–98; BMI 39.4
--- NOTE | ~2025-04-14 | XR_ITS ---
EXAMINATION: XR CHEST CLINICAL INFORMATION: weakness COMPARISON: December 29, 2010 is not available on PACS. TECHNIQUE: Portable AP upright view of the chest was obtained. FINDINGS: Patchy opacity right perihilar region. Poor inspiration. No pneumothorax. No gross pleural effusion. No free air beneath the diaphragm. Heart silhouette size demonstrates a prominent ascending thoracic aorta XR/XR chest 1V IMPRESSION: Questionable airspace disease right perianal region with a masslike opacity at the ascending thoracic aorta. Consider CT chest.. Electronically signed by: Amari Bee MD 04/14/2025 11:42 AM EST
--- NOTE | ~2025-04-14 | CT_ITS ---
EXAMINATION: CT HEAD WITHOUT CONTRAST CLINICAL INFORMATION: EtOH. Weakness. COMPARISON: CT brain 10/09/2016 TECHNIQUE: Contiguous axial imaging was performed from the skull base to vertex without intravenous administration of contrast. This CT examination was performed using dose optimization techniques as appropriate, variously including the following: *Automated exposure control *Adjustment of mA and/or kV according to patient size (this includes techniques or standardized protocols for targeted exams where dose is matched to indication/reason for exam; i.e. extremities or head) *Use of iterative reconstruction technique DLP: 819 mGy/cm. FINDINGS: There is no acute intra-axial, extra-axial bleed, masses or midline shift. There is no acute infarction evolution. There is no edema. The peng to white matter differentiation is maintained normal. The lateral ventricles are symmetrical in size and configuration without enlargement. Bone windows reveal no calvarial abnormality. There is no scalp soft tissue abnormality. Bilateral paranasal sinuses and mastoid air cells are well-aerated. No scalp soft tissue abnormality seen. CT/CT head/brain wo IV con IMPRESSION: No acute intracranial process seen. No major change compared to previous exam 10/09/2016. Electronically signed by: Chao Liu MD 04/14/2025 04:48 PM EST
--- NOTE | 2025-04-14 11:20 | ED_ITS ---
HPI - General Adult General Chief complaint: ETOH/Substance Use Stated complaint: ETOH Time Seen by Provider: 04/14/25 11:12 Source: patient and EMS Mode of arrival: EMS Limitations: no limitations History of Present Illness ED Provider: Sarah Tavares PA-C HPI narrative: Patient is a 59 year old male with a history of alcohol abuse, pancreatitis, and lung cancer presenting to the emergency department today after being found intoxicated at his methadone clinic. Patient states that he was sober for 2 days and then began drinking again. Patient states that knows he has lung cancer and is not pursuing treatment at this time. [facility] staff stated they were concerned because the patient was acting more confused and blew into their breathalyzer which showed >0.2. . Patient denies any other complaints at this time. Related Data Home Medications ?Medication ?Instructions ?Recorded ?Confirmed cephalexin 500 mg capsule 500 mg PO QID 10/26/24 diazepam 5 mg tablet 1 mg PO QID 10/26/24 doxepin 10 mg capsule 10 mg PO BEDTIME 10/26/24 ondansetron 8 mg disintegrating 8 mg PO BID PRN Nausea And Vomiting 10/26/24 tablet prednisone 20 mg tablet 20 mg PO BID 10/26/24 pregabalin 150 mg capsule 300 mg PO BID 10/26/24 thiamine HCl (vitamin B1) 100 mg 200 mg PO DAILY 10/26 tablet Allergies Allergy/AdvReac Type Severity Reaction Status Date / Time No Known Allergies Allergy Verified 04/14/25 10:54 Review of Systems 2 Constitutional: Constitutional: Reports as per HPI Eyes: Eyes: Reports as per HPI ENT: Reports as per HPI Cardiovascular: Cardiovascular: Reports as per HPI Respiratory: Respiratory: Reports as per HPI Gastrointestinal: Gastrointestinal: Reports as per HPI Genitourinary: Genitourinary: Reports as per HPI Musculoskeletal: Musculoskeletal: Reports as per HPI Integumentary/Breasts: Skin/Breast: Reports as per HPI Neurologic: Reports as per HPI Psychiatric: Psychiatric: Reports as per HPI Endocrine: Endocrine: Reports as per HPI Hematologic/Lymphatic: Hematologic/Lymphatic: Reports as per HPI Allergic/Immunologic: Allergic/Immunologic: Reports as per HPI [facility] Past Medical History Attestation statement: The following information was validated with the patient. Source: old records reviewed and nursing notes reviewed Medical History Morbid obesity Class 1 obesity Gout Alcohol use disorder Alcohol withdrawal syndrome Chronic alcoholic pancreatitis Social History Social History Alcohol intake: current Alcohol intake frequency: 3 or more drinks per day Patient Tobacco Use Status: Tobacco use Unknown Use of substances other than those prescribed or required for medical reasons: No Advance Directives: No Advance Directives Information Provided: No Do you have a plan to hurt others: No Plan Physical Exam ED Vital Signs: Vital Signs - 24 hr 04/14/25 10:48 04/14/25 10:56 04/14/25 12:55 Temperature 97.9 F 97.9 F Pulse Rate 64 64 Respiratory Rate 17 17 18 Blood Pressure 145/68 H 145/68 H Pulse Oximetry 95 95 Oxygen Delivery Method Room Air Room Air Oxygen Flow Rate 04/14/25 13:10 04/14/25 13:25 04/14/25 13:40 Temperature Pulse Rate 61 66 Respiratory Rate 18 20 20 Blood Pressure 154/84 H Pulse Oximetry 95 Oxygen Delivery Method Oxygen Flow Rate 04/14/25 14:00 04/14/25 14:28 04/14/25 14:30 Temperature Pulse Rate 65 61 61 Respiratory Rate 18 18 Blood Pressure 113/39 L 93/42 L 90/38 L Pulse Oximetry 95 95 95 Oxygen Delivery Method Nasal Cannula Nasal Cannula Oxygen Flow Rate 2 2 04/14/25 15:00 04/14/25 15:29 04/14/25 16:04 Temperature Pulse Rate 59 68 79 Respiratory Rate 20 18 18 Blood Pressure 166/74 H 135/78 130/65 Pulse Oximetry 95 95 96 Oxygen Delivery Method Nasal Cannula Room Air Oxygen Flow Rate 2 04/14/25 19:21 04/14/25 19:56 04/14/25 22:00 Temperature 98.7 F 98.2 F Pulse Rate 62 62 Respiratory Rate 16 Blood Pressure 129/57 L 162/93 H Pulse Oximetry 94 98 Oxygen Delivery Method Room Air Room Air Oxygen Flow Rate 04/15/25 01:07 04/15/25 02:55 04/15/25 05:01 Temperature 98.1 F Pulse Rate 62 78 Respiratory Rate 16 16 12 Blood Pressure 170/69 H 184/94 H Pulse Oximetry 95 97 Oxygen Delivery Method Room Air Room Air Oxygen Flow Rate BMI result Body Mass Index 39.4 Const General: cooperative, no acute distress, alert and awake Nutritional Appearance: well nourished Orientation/consciousness: patient oriented x3 HENMT Other: Small areas of bruising present to various parts of the face - all old appearing with yellowish coloring. Ears: hearing grossly normal bilaterally and external ears normal General nose exam: Normal external nose present, no nasal discharge noted and no epistaxis Face and sinus: No abrasion and No laceration Mouth: Normal oral and palatal mucosa present, no drooling and no muffled voice Eyes General: appearance normal, both eyes and all related structures Periorbital: periorbital findings normal Eyelids: Yes eyelids normal Conjunctivae: conjunctivae normal Pupils: Equal, round and reactive pupils present EOM: EOMs intact bilaterally Neck Neck: Yes normal visual inspection and Yes full ROM Resp Effort & Inspection: normal respiratory effort and able to speak in complete sentences Neuro General: patient oriented x3, moves all extremities and CN's II-XI intact bilaterally Cranial nerves: Yes Equal, round and reactive pupils present Extrem General: Yes normal to inspection, Yes full ROM and Yes capillary refill normal Psych Appearance: grossly normal Mental Status: mental status grossly normal Affect: Labile affect present Attitude: Belligerent attititude/behavior present Course Reevaluation(s) Reevaluation #1: Patient received in sign-out at change of shift pending sober re-evaluation. In summary he was presenting from [facility] due to altered mental status and excessive alcohol intoxication. I reviewed his workup, his alcohol level was significantly elevated. His lipase was also elevated to 343. He has chronic pancreatitis. On my evaluation he has no abdominal pain, tenderness or nausea/vomiting. Patient resting comfortably throughout my assumption of his care. His family considered coming to pick him up but then ultimately did not feel safe picking him up late at night. The patient is now clinically sober, awake alert and oriented. He appears to be somewhat restless and anxious and feels as if he is withdrawing. I did give him Ativan 2 mg for alcohol withdrawal. I offered to have him speak with the recovery team for consideration of detox but he declined. Plan for safe disposition in the morning. Time: 01:40 Medications Administered Generic Name Dose Route Start Last Admin Trade Name Freq PRN Reason Stop Dose Admin Lorazepam 2 mg 04/15/25 01:37 04/15/25 01:52 Lorazepam 1 Mg Tablet PO 2 mg Q4H PRN Administration Alcohol Withdrawal Discontinued Medications Generic Name Dose Route Start Last Admin Trade Name Daniq PRN Reason Stop Dose Admin Sodium Chloride 1,000 mls @ 999 mls/hr 04/14/25 15:00 04/14/25 16:02 Ns IV 04/14/25 16:00 Infused .Q1H1M JORDON Infusion Midazolam HCl 5 mg 04/14/25 12:45 04/14/25 12:55 Midazolam Hcl 5 Mg/Ml Vial IM 04/14/25 12:46 5 mg ONCE ONE Administration Olanzapine 5 mg 04/14/25 13:50 04/14/25 14:00 Olanzapine 10 Mg Vial IM 04/14/25 13:51 5 mg ONCE ONE Administration Medical Decision Making Medical Decision Making [facility] Narrative: Patient is a 59 year old male with a history of alcohol abuse, pancreatitis, and lung cancer presenting to the emergency department today after being found intoxicated at his methadone clinic. Patient's physical exam was as noted in the physical exam portion of this note. Patient was obviously intoxicated and slurring his words, unsteady on his feet. No neurological deficits. Intermittently belligerent. Patient's blood work showed a lipase of 343 and an ethanol level of 302. Patient's EKG showed no obvious evidence of arrhythmia, ischemia, or infarct. Patient's chest x-ray showed the lung mass that the patient is already aware of and has opted not to address / treat. Patient's head CT showed no acute process. Patient attempted to get up and leave the department several times and became more agitated. Patient was given an IM dose of Versed at 1245 which helped some but then the patient became agitated again, after consulting with Dr. Sukumar Bergeron, 5mg of IM Zyprexa was ordered and the patient was much more pleasant after that. I explained my physical exam findings as well as all test results to the patient. I answered all questions asked by the patient. Patient signed out to RAJWINDER Shin pending sobriety. Patient placed in observation at 1656. Differential Diagnosis Differential Diagnoses: The differential diagnosis associated with the presentation includes Alcohol intoxication Confusion Admission/Observation Consideration of admission/observation: Escalation of care including admission/observation considered Patient's disposition will be determined after sobriety. Lab Data [facility] Lab Attestation statement: I reviewed the patient's lab results. My interpretation of these results are in the MDM Rationale portion of this note. 04/14/25 15:06 04/14/25 11:51 Labs: Lab Results 04/14/25 04/14/25 Range/Units 11:51 15:06 WBC 6.6 (4.8-10.8) X10*3/uL RBC 4.49 L (4.60-5.80) X10*6/uL Hgb 14.1 (14.0-18.0) g/dl Hct 41.3 L (42.0-52.0) % MCV 92.0 (80.0-98.0) fL MCH 31.4 (27.0-33.0) pg MCHC 34.1 (31.0-36.0) g/dl RDW 14.0 (11.0-16.0) % Plt Count 169 (160-400) X10*3/uL MPV 10.0 (9.4-12.4) fL Immature Gran % (Auto) 0.6 H (0.0-0.4) % Neut % (Auto) 57.6 (45-73) % Lymph % (Auto) 29.7 (20-40) % [place] % (Auto) 5.6 (2-11) % Eos % (Auto) 4.5 H (0-4) % Baso % (Auto) 2.0 (0-2) % Lymph # (Auto) 2.0 (1.2-4.9) X10*3/uL [place] # (Auto) 0.4 (0.1-1.2) X10*3/uL Eos # (Auto) 0.3 (0.0-0.4) X10*3/uL Baso # (Auto) 0.1 (0.0-0.2) X10*3/uL Abs Immat Gran (auto) 0.04 H (0.00-0.03) X10*3/uL Absolute Neuts (auto) 3.8 (2.0-8.3) x10*3/uL Absolute Nucleated RBC 0.000 (0.0-0.012) X10*3/uL Nucleated RBC % (auto) 0.0 (0.0-0.2) /100WBC Sodium 145 (135-145) mmol/L Potassium 4.4 (3.3-5.1) mmol/L Chloride 112 H (96-108) mmol/L Carbon Dioxide 23 (22-29) mmol/L Anion Gap 14 (12-20) BUN 17 H (9-16) mg/dL Creatinine 0.84 (0.5-1.4) mg/dL Estim Creat Clear Calc 111.4 Estimated GFR > 60 Random Glucose 99 (60-115) mg/dL Calcium 9.0 (8.4-10.2) mg/dL Magnesium 2.3 (1.6-2.6) mg/dL Total Bilirubin 0.2 (0.0-1.0) mg/dL AST 33 (5-37) U/L ALT 19 (0-40) U/L Alkaline Phosphatase 97 (39-117) U/L Troponin I High Sens 4.7 D (<3.5-35.0) ng/L Total Protein 7.5 (6.5-8.0) g/dL Albumin 4.2 (3.5-5.0) g/dL Lipase 343 H (8-78) U/L Ethyl Alcohol 302 H* mg/dL Influenza Type A (PCR) NEGATIVE (Negative) Influenza Type B (PCR) NEGATIVE (Negative) RSV RNA Qual (PCR) NEGATIVE (Negative) SARS-CoV-2 RNA (RT-PCR) NEGATIVE (Negative) Independent Interpretation I performed an independent interpretation of an: EKG and Plain X-Ray Interpretation: My interpretation is in agreement with the radiologist's impression of this imaging study as written below. EXAMINATION: XR CHEST CLINICAL INFORMATION: weakness COMPARISON: December 29, 2010 is not available on PACS. TECHNIQUE: Portable AP upright view of the chest was obtained. FINDINGS: Patchy opacity right perihilar region. Poor inspiration. No pneumothorax. No gross pleural effusion. No free air beneath the diaphragm. Heart silhouette size demonstrates a prominent ascending thoracic aorta XR/XR chest 1V IMPRESSION: Questionable airspace disease right perianal region with a masslike opacity at the ascending thoracic aorta. Consider CT chest.. Electronically signed by: Amari Bee MD 04/14/2025 11:42 AM EST Dictated By: Amari Valera MD Signed By: Electronically signed by Amari Nolan MD 04/14/25 1142 I independently interpreted this EKG and am in agreement with the below findings: Vent. Rate: 59 BPM Atrial Rate: 59 BPM P-R Int: 164 ms QRS Dur: 92 ms QT Int: 436 ms P-R-T Axes: 22 -5 11 degrees QTcB Int: 431 ms Sinus bradycardia When compared with ECG of 25-Oct-2024 23:30, No significant change was found DD/ 1140 Radiology Impression Discussion of test interpretation with radiology: I have reviewed the radiologist's reading. Independent Historian Clinical information obtained from an independent historian. History obtained from or confirmed by: EMS (EMS provided additional history) Critical Care Time Critical Care Time Critical Care Time: Yes Total Critical Care Time: 34 Attestation: I spent 34 minutes of Critical Care Time with this patient. This does not include time spent on separately reported billable procedures. Discharge Plan Discharge Clinical Impression: Alcohol use disorder Patient Disposition: Home, Self-Care Instructions: Abuse of Alcohol (ED) Additional Instructions: Alcohol use disorder You were seen in the Emergency Department today for treatment of alcohol use disorder.? You may have been given medications to help with your withdrawal symptoms.? Please do not drink alcohol with them. This is very dangerous and can cause respiratory depression or other adverse reactions depending on the medication. If you would like to cut down or stop your alcohol use please consider calling our outpatient Addiction Treatment office:? [facility] (M-F [id number]) [address] [place] [address] You have also been given a list of treatment providers in the area that can assist as well.? If you experience seizures, vomiting blood, black stools, falls, severe headache, chest pain, fevers, trouble breathing, hallucinations or any other concerns you need to call 911 or seek immediate care. Please stay hydrated. Prescriptions: No Action prednisone 20 mg tablet 20 mg PO BID thiamine HCl (vitamin B1) 100 mg tablet 200 mg PO DAILY doxepin 10 mg capsule 10 mg PO BEDTIME ondansetron 8 mg tablet,disintegrating 8 mg PO BID PRN (Reason: Nausea And Vomiting) cephalexin 500 mg capsule 500 mg PO QID diazepam 5 mg tablet 1 mg PO QID Rx Instructions: TAKE 2 TABLETS BY MOUTH FOUR TIMES DAILY FOR 1 DAY THEN TAKE 1 TABLET FOUR TIMES DAILY FOR 1 DAY THEN TAKE 1 TABLET TWICE DAILY FOR 2 DAYS pregabalin 150 mg capsule 300 mg PO BID Print Language: Georgian
--- NOTE | 2025-04-14 11:26 | ECG_ITS ---
Test Reason : weakness Blood Pressure : */* mmHG Vent. Rate : 59 BPM Atrial Rate : 59 BPM P-R Int : 164 ms QRS Dur : 92 ms QT Int : 436 ms P-R-T Axes : 22 -5 11 degrees QTcB Int : 431 ms Sinus bradycardia Otherwise normal ECG When compared with ECG of 25-Oct-2024 23:30, No significant change was found Referred By: Sraah Tavares Electronically Signed By: Avery Flores
--- NOTE | 2025-04-14 11:34 | MHC.EDTECH ---
attempted to do ekg pt not in designated area.
[2025-04-14 12:20] LABS: Alanine Aminotransferase 19 U/L (0-40); Albumin Level 4.2 g/dL (3.5-5.0); Alkaline Phosphatase 97 U/L (39-117); Anion Gap 14 (12-20); Aspartate Amino Transferase 33 U/L (5-37); Blood Urea Nitrogen 17 mg/dL (9-16); Calcium 9.0 mg/dL (8.4-10.2); Carbon Dioxide 23 mmol/L (22-29); Chloride 112 mmol/L (96-108); Creatinine Clr Calc Pharmacy 111.4; Estimated Glomerular Filt Rate > 60; Magnesium 2.3 mg/dL (1.6-2.6); Potassium 4.4 mmol/L (3.3-5.1); Sodium 145 mmol/L (135-145); Total Protein 7.5 g/dL (6.5-8.0)
[2025-04-14 12:26] LABS: Troponin-I High Sensitivity 4.7 ng/L (<3.5-35.0)
[2025-04-14 12:28] LABS: Lipase 343 U/L (8-78)
[2025-04-14 12:34] LABS: Resp Syncy Virus RNA Qual PCR NEGATIVE (Negative); SARS COV2 PCR INHOUSE NEGATIVE (Negative)
[2025-04-14] MEDS: OLANZapine 10 MG VIAL 5 MG IM (14:00)
--- NOTE | 2025-04-14 14:13 | MHC.EDTECH ---
attempted to do repeat lab pt refused.
[2025-04-14 15:18] LABS: Hematocrit 41.3 % (42.0-52.0); Hemoglobin 14.1 g/dl (14.0-18.0); Imm Gran Abs Auto 0.04 X10*3/uL (0.00-0.03); Imm Gran Pct Auto 0.6 % (0.0-0.4); Lymphocytes Absolute Auto 2.0 X10*3/uL (1.2-4.9); Mean Corpuscular HGB Conc 34.1 g/dl (31.0-36.0); Mean Corpuscular Hemoglobin 31.4 pg (27.0-33.0); Mean Corpuscular Volume 92.0 fL (80.0-98.0); NRBC Abs Auto 0.000 X10*3/uL (0.0-0.012); NRBC Pct Auto 0.0 /100WBC (0.0-0.2); Platelet Count 169 X10*3/uL (160-400); Red Blood Count 4.49 X10*6/uL (4.60-5.80); White Blood Count 6.6 X10*3/uL (4.8-10.8)
--- NOTE | 2025-04-14 17:56 | HO.NURTONUR ---
Addendum entered by uJany Bender RN 04/14/25 19:11: Daughter Alma calls ED inquiring about Pts status. Pt gives this RN verbal permission to speak with Alma over the phone. Review of the days event completed with Alma. This RN asks of Alma would be willing to come and provide a sober ride for Pt. Alma states at this time she does not feel comfortable picking Pt up. She states she will consult with her siblings re: Pts current situation and will call back with a decisions. RAJWINDER Hansen and ongoing RN Casey lópez. Original Note: Pt comes to ED today via EMS from [facility] OP program. Pt completed a breathalyzer at [facility] and blew a 0.219, therefore ambulance was called for transport to ED. On arrival Pt agrees to remain in ED for observation and work up. Shortly after arrival, Pt begins to exit seek and becomes increasingly resistive to care. Pt refuses lab work, attempts to leave ED and does not follow verbal directives. At this time, Pt advised that if a sober ride can be coordinated he may leave the ED. Pt states he wishes for this RN to call his son but is unable to provide a phone number. Pt educated that given his unsteady gait and notable intoxication (slurred speech, breathalyzer results) Pt medicated per MAR for increased agitation and uncooperative behavior @1255, security present. Pt VS monitored closely after medication administration. Pt continues to exit seek and be resistive to care. He frequently removes medical equipment and fails to follow directives. He also continues to seek an exit. Pt demands to leave and is advised if a sober ride can be coordinated he may leave. At this time Pt states he does not wish for staff to call his son for a ride. Pt medicated per MAR at 1400 and monitored closely. Pt continues to require redirection and interfered with VS equipment. Pt assisted to bathroom with 2 RNs d/t notably unsteady gait. Once returned to stretcher, Pt rests quietly for some time. BP and O2 sat noted to drop and PA ordered IVF and 2L O2 via NC applied. Pt continues to sleep on stretcher until about 1745 when he wakes and requires assistance to the bathroom. Pt offered food and beverage to which he declines, but he does request toilet water for drinking. VSS at this time PA made aware Pt is awake and plan to see Pt at bedside.
--- NOTE | 2025-04-14 18:25 | MHC.EDTECH ---
This tech attempted to undress patient. Initially pt refused prior to being IM. Backpack and top clothing are behind nurse station . Pending the Pa to re-evaluate if pt is able to go home,pt requesting to leave./ Backpack Labeled
--- NOTE | 2025-04-14 18:51 | MHC.EDTECH ---
Pt Backpack bagged [facility] Rn was notified Patient has pants/sneakers/ belt on. Pt was padded down by security.
--- NOTE | 2025-04-14 19:24 | PC.NURSE ---
this RN assumed care of this pt @1900, pt noted to be resting w/ eyes closed in hospital stretcher, respirations even and unlabored, no apparent distress noted at this time, no perspiration, fidgeting, restlessness, signs of discomfort noted
[2025-04-15 01:07] VITALS: BP 170/69; PULSE 62; RESP 16; O2SAT 95
[2025-04-15 02:55] VITALS: RESP 16
[2025-04-15 05:01] VITALS: BP 184/94; PULSE 78; RESP 12; TEMP 36.7; O2SAT 97
[2025-04-15 05:49] VITALS: BP 184/94; PULSE 78; RESP 12; TEMP 36.7; O2SAT 97
== END 2025-04-15 05:59 | disposition home or self-care (01) ==
PROVIDERS: Physician Assistant Medical; Emergency Provider Emergency Medicine
DX: F10.229 Alcohol dependence with intoxication, unspecified (principal); C34.90 Malignant neoplasm of unspecified part of unspecified bronchus or lung; K86.0 Alcohol-induced chronic pancreatitis; E66.01 Morbid (severe) obesity due to excess calories; M10.9 Gout, unspecified
CPT/HCPCS: 70450; 71045; 80053; 80307; 83690; 83735; 84484; 85025; 87637; 93005; 96360; 96372; 99284; 99285; J2250; J2359

== ENCOUNTER → 2025-04-14 11:26 | Outpatient (BNV) | payer MEDICARE, MEDICAID, SELFPAY | PROVIDERS: Emergency Provider Emergency Medicine; Visit Provider Internal Medicine Cardiovascular Disease | DX: R00.1 Bradycardia, unspecified (principal) | CPT/HCPCS: 93010 ==

== ENCOUNTER → 2025-04-14 11:26 | Outpatient (BNV) | payer MEDICARE, MEDICAID, SELFPAY | PROVIDERS: Visit Provider Radiology Diagnostic Radiology | DX: F10.90 Alcohol use, unspecified, uncomplicated (principal); R53.1 Weakness | CPT/HCPCS: 70450; 71045 ==